=== PATIENT | female | born 1990 | race Caucasian/White ===

== ENCOUNTER 2016-09-08 00:39 | Emergency (ER) | payer BC ==
[~2016-09-08] VITALS: Ht 157.5 cm; Wt 51.0 kg
[2016-09-08] MEDS ORDERED: SODIUM CHLORIDE 0.9% 1,000ML IV ONE (01:00)
[2016-09-08] MEDS ORDERED: SODIUM CHLORIDE FLUSH 10ML SYR IVF ONE (01:00)
[2016-09-08 01:32] LABS: ASPARTATE AMINO TRANSFERASE 8 U/L (15-37); BLOOD UREA NITROGEN 9 mg/dL (7-18)
[2016-09-08 03:09] VITALS: BP 127/69
== END 2016-09-08 03:45 | disposition home or self-care (01) ==
LOC: ED 03:15
DX: N20.0 Calculus of kidney (principal)
CPT/HCPCS: 36415; 80053; 81003; 83690; 84703; 85025; 99284